=== PATIENT | female | born 1965 | race Caucasian/White ===

== ENCOUNTER 2024-06-19 15:49 | Emergency (ER) | payer OTHER ==
[2024-06-19 16:33] LABS: Absolute Eosinophils 0.1 K/uL (0-0.5); Absolute Lymphocytes (CBC) 2.1 K/uL (0.7-4.9); Absolute Monocytes 0.4 K/uL (0.1-1.3); Absolute Neutrophil 5.3 K/uL (1.8-8.0); Basophils % 0.6 % (0-1.3); Eosinophils % 0.8 % (0-4.4); Hematocrit 39.7 % (36.0-45.0); Hemoglobin 13.5 g/dL (12.0-15.0); Lymphocytes % 26.2 % (15.3-44.8); MCH 28.4 pg (27.0-35.0); MCV 83.6 fL (80-100); Monocytes % 5.6 % (3.3-12.3); Neutrophils % 66.8 % (41.7-73.7); Nucleated Red Blood Cells % 0.1 % (0-0); Platelets 292 thou/uL (152-406); RBC Red Blood Cell Count 4.76 M/uL (3.86-4.86); Red Cell Distribution Width 14.6 % (12.1-15.2)
--- NOTE | 2024-06-19 16:34 | RAD REPORT ---
EXAMINATION: ONE VIEW CHEST XR CLINICAL INDICATION: CHEST PAIN TECHNIQUE: Frontal chest projection is submitted. Examination is limited by patient positioning and t echnique. COMPARISON: No prior exam. FINDINGS: The lungs are well inflated and clear. The heart is upper limit of normal in size. No displaced fract ures identified. IMPRESSION: No acute intrathoracic abnormalities.
[2024-06-19 16:52] LABS: ALT/SGPT 31 U/L (13-56); AST/SGOT 19 U/L (15-37); Albumin/Globulin Ratio 1.1 (1.1-1.8); Alkaline Phosphatase 132 U/L (45-117); Anion Gap 9.7 mEq/L (5.0-15.0); BUN Blood Urea Nitrogen 15 mg/dL (7-18); Bicarbonate 25 mEq/L (21-32); Bilirubin Total 0.4 mg/dL (0.2-1.0); Globulin 3.8 g/dL (2.3-3.5); Glomerular Filtration Rate 102 ml/min (=/>90); Glucose Level 101 mg/dL (74-106); Potassium 3.7 mEq/L (3.5-5.1); Protein, Total 7.8 g/dL (6.4-8.2); Sodium Level 139 mEq/L (136-145)
[2024-06-19 16:53] LABS: Bilirubin Direct < 0.2 mg/dL (0-0.2); Bilirubin Indirect, Calculated 0.2 mg/dL (0.2-0.8); Troponin High Sensitivity < 3.0 pg/mL (<58.9)
[2024-06-19] MEDS ORDERED: ASPIRIN 81 MG CHEWABLE TABLET ONE (16:55)
--- NOTE | 2024-06-19 17:46 | ER ---
Nurse's Notes [facility] Name: Theresa Michelle Age: 58 yrs Sex: Female : 1965 Arrival Date: 06/19/2024 Time: 15:49 Bed 4 Private MD: Diagnosis: Chest pain, unspecified Presentation: 06/19 15:59 Chief complaint: Patient states: chest fluttering/pain across chest for a few days, iw pain radiates to left arm, also feels pressure in right side of chest. Coronavirus screen: At this time, the client does not indicate any symptoms associated with coronavirus-19. Ebola Screen: No symptoms or risks identified at this time. Initial Sepsis Screen: Does the patient meet any 2 criteria? No. Patient's initial sepsis screen is negative. Does the patient have a suspected source of infection? No. Patient's initial sepsis screen is negative. Risk Assessment: Do you want to hurt yourself or someone else? Patient reports no desire to harm self or others. Onset of symptoms was June 17, 2024. 15:59 Method Of Arrival: Ambulatory iw 15:59 Acuity: MARIO 3 iw Historical: - Allergies: 16:00 No Known Allergies; iw - Home Meds: 16:00 None [Active]; iw - PMHx: 16:00 Diabetes mellitus; Migraine; iw - PSHx: 16:00 section; tubal ligation; iw - Immunization history:: Adult Immunizations up to date. - Infectious Disease History:: Denies. - Social history:: Smoking status: Patient/guardian denies using tobacco, Stopped _ months ago 2. - Family history:: not pertinent. Screenin:24 [facility] [place] ED Fall Risk Assessment (Adult) History of falling in the last 3 months, le1 including since admission No falls in past 3 months (0 pts) Confusion or Disorientation No (0 pts) Intoxicated or Sedated No (0 pts) Impaired Gait No (0 pts) Mobility Assist Device Used No (0 pt) Altered Elimination No (0 pt) Score/Fall Risk Level 0 - 2 = Low Risk Oriented to surroundings, Maintained a safe environment, Educated pt \T\ family on fall prevention, incl call for assistance when getting out of bed, Assessed \T\ reinforced patient's understanding of fall precautions, Hourly rounding (assess needs \T\ fall precautionary measures) done. Abuse screen: Denies threats or abuse. Denies injuries from another. Nutritional screening: No deficits noted. Tuberculosis screening: No symptoms or risk factors identified. Vital Signs: 15:59 BP 185 / 97; Pulse 88; Resp 16; Pulse Ox 98% on R/A; Weight 79.38 kg; Height 5 ft. 3 iw in. ; Pain 3/10; 15:59 Body Mass Index 31.00 (79.38 kg, 160.02 cm) iw 15:59 Pain Scale: Adult ED Course: 15:50 Patient arrived in ED. am2 15:51 Segundo Aranda MD is Attending Physician. rt 15:54 Eduard Farris RN is Primary Nurse. le1 16:00 Triage completed. iw 16:01 Arm band placed on. iw 16:23 Initial lab(s) drawn, by me, sent to lab. EKG done, by ED staff, reviewed by Segundo Aranda MD. Inserted saline lock: 20 gauge in right forearm, using aseptic technique. Blood collected. Flushed with 10 mL NS. Patient maintains SpO2 saturation greater than 95% on room air. 16:24 Patient has correct armband on for positive identification. Bed in low position. Call le1 light in reach. Side rails up X2. Provided Education on: Informed to use call light for assistance. Client placed on continuous cardiac and pulse oximetry monitoring. NIBP monitoring applied. directory clerk on. Pulse ox on. NIBP on. 16:26 XRAY Chest (1 view) In Process Unspecified. EDMS 17:45 Baudilio Barron MD is Referral Physician. rt Administered Medications: 16:57 Drug: Aspirin PO Chewable Tablet 324 mg PO once; 81 mg tablets x 4 Route: PO; le1 16:57 Follow up: Response: No adverse reaction le1 Outcome: 17:45 Discharge ordered by . rt 18:34 Patient left the ED. Signatures: Dispatcher [employer] EDMS Nydia Horne RN RN Zoie Jaquez am2 Segundo Aranda MD MD rt Eduard Farris RN RN le1
--- NOTE | 2024-06-19 17:46 | EDPHYS ---
Physician Documentation [facility] Name: Theresa Michelle Age: 58 yrs Sex: Female : 1965 Arrival Date: 06/19/2024 Time: 15:49 Bed 4 Private MD: ED Physician Segundo Aranda HPI: 06/19 17:46 This 58 yrs old Female presents to ER via Ambulatory with complaints of Chest Pain, Arm rt Pain, Back Pain. 17:46 Patient presents to the ED with about 3 days of intermittent chest tightness. Denies rt shortness of breath, other acute complaints at this time. Symptoms are moderate in severity, no other aggravating or alleviating factors. Denies exertional component.. Historical: - Allergies: 16:00 No Known Allergies; iw - Home Meds: 16:00 None [Active]; iw - PMHx: 16:00 Diabetes mellitus; Migraine; iw - PSHx: 16:00 section; tubal ligation; iw - Immunization history:: Adult Immunizations up to date. - Infectious Disease History:: Denies. - Social history:: Smoking status: Patient/guardian denies using tobacco, Stopped _ months ago 2. - Family history:: not pertinent. ROS: 17:46 Constitutional: Negative for fever, chills, and weight loss, Respiratory: Negative for rt shortness of breath, cough, wheezing, and pleuritic chest pain, Abdomen/GI: Negative for abdominal pain, nausea, vomiting, diarrhea, and constipation, MS/Extremity: Negative for injury and deformity, Skin: Negative for injury, rash, and discoloration, Neuro: Negative for headache, weakness, numbness, tingling, and seizure, 17:46 Cardiovascular: Positive for chest pain, Negative for edema, Exam: 17:46 Constitutional: This is a well developed, well nourished patient who is awake, alert, rt and in no acute distress. Head/Face: Normocephalic, atraumatic. Chest/axilla: Normal chest wall appearance and motion. Nontender with no deformity. No lesions are appreciated. Cardiovascular: Regular rate and rhythm with a normal S1 and S2. No gallops, murmurs, or rubs. Normal PMI, no JVD. No pulse deficits. Respiratory: Lungs have equal breath sounds bilaterally, clear to auscultation and percussion. No rales, rhonchi or wheezes noted. No increased work of breathing, no retractions or nasal flaring. Abdomen/GI: Soft, non-tender, with normal bowel sounds. No distension or tympany. No guarding or rebound. No evidence of tenderness throughout. Skin: Warm, dry with normal turgor. Normal color with no rashes, no lesions, and no evidence of cellulitis. MS/ Extremity: Pulses equal, no cyanosis. Neurovascular intact. Full, normal range of motion. Neuro: Awake and alert, GCS 15, oriented to person, place, time, and situation. Cranial nerves II-XII grossly intact. Motor strength 5/5 in all extremities. Sensory grossly intact. Cerebellar exam normal. Normal gait. 17:46 ECG was reviewed by the Attending Physician. Vital Signs: 15:59 BP 185 / 97; Pulse 88; Resp 16; Pulse Ox 98% on R/A; Weight 79.38 kg; Height 5 ft. 3 iw in. ; Pain 3/10; 15:59 Body Mass Index 31.00 (79.38 kg, 160.02 cm) iw 15:59 Pain Scale: Adult iw MDM: 16:05 Medical Screening Exam initiated rt 17:46 Differential diagnosis: Nonspecific chest pain, chest wall pain, pneumonia, rt pneumothorax, CAD. HEART Score: History: Slightly Suspicious (0), ECG: Non specific repolarization disturbance / LBTB / PM (1), Age: > 45 and < 65 years (1), Risk Factors: 1 or 2 risk factors (1), Troponin: < or = 1 x Normal Limit (0), Total Score = 3. The patient was given aspirin in the Emergency Department. Data reviewed: vital signs, nurses notes, lab test result(s), EKG, radiologic studies. Consideration of Admission/Observation Escalation of care including admission/observation considered. Symptoms have been present for about 3 days, for this reason, believe that 1 set of undetectable cardiac enzymes is sufficient to rule out acute coronary syndrome. Do not believe that she requires admission at this time. Patient is stable for outpatient care, I discussed outpatient follow-up with cardiology as well as return precautions for worsening symptoms patient verbalizes understanding and is comfortable with this plan.. I considered the following discharge prescriptions or medication management in the emergency department Medications were administered in the Emergency Department. See MAR. Independent interpretation of the following test(s) in the Emergency Department X-Ray: My interpretation is No infiltrate seen on my interpretation of x-ray images. Care significantly affected by the following chronic conditions: Diabetes. Counseling: I had a detailed discussion with the patient and/or guardian regarding the historical points, exam findings, and any diagnostic results supporting the discharge/admit diagnosis, lab results, radiology results, the need for outpatient follow up, to return to the emergency department if symptoms worsen or persist or if there are any questions or concerns that arise at home. 06/19 16:09 Order name: Basic Metabolic Panel; Complete Time: 16:56 rt 06/19 16:09 Order name: CBC with Diff; Complete Time: 16:41 rt 06/19 16:09 Order name: LFT's; Complete Time: 16:56 rt 06/19 16:09 Order name: Troponin HS; Complete Time: 16:56 rt 06/19 16:09 Order name: XRAY Chest (1 view); Complete Time: 16:41 rt 06/19 16:09 Order name: Cardiac monitoring; Complete Time: 16:23 rt 06/19 16:09 Order name: EKG - Nurse/Tech; Complete Time: 16:27 rt 06/19 16:09 Order name: IV Saline Lock; Complete Time: 16:27 rt 06/19 16:09 Order name: Labs collected and sent; Complete Time: 16:23 rt 06/19 16:09 Order name: O2 Per Protocol; Complete Time: 16:23 rt 06/19 16:09 Order name: O2 Sat Monitoring; Complete Time: 16:23 rt EC:46 Rate is 63 beats/min. Rhythm is regular, Normal Sinus Rhythm with No ectopy. QRS [place] rt is Normal. MO interval is normal. QRS interval is normal. QT interval is normal. No Q waves. No ST changes noted. Interpreted by me. Administered Medications: 16:57 Drug: Aspirin PO Chewable Tablet 324 mg PO once; 81 mg tablets x 4 Route: PO; le1 16:57 Follow up: Response: No adverse reaction le1 Disposition Summary: 06/19/24 17:45 Discharge Ordered Notes: Location: Home rt Problem: new rt Symptoms: have improved rt Condition: Stable rt Diagnosis - Chest pain, unspecified rt Followup: rt - With: Baudilio Barron MD - When: 2 - 3 days - Reason: Discharge Instructions: - Discharge Summary Sheet rt - Nonspecific Chest Pain, Adult rt Forms: - Medication Reconciliation Form rt - Antibiotic Education rt - Prescription Opioid Use rt - Patient Portal Instructions rt - Leadership Thank You Letter rt Signatures: Dispatcher [employer] Nydia Sue, RN Segundo Wang MD MD rt Eduard Farris RN RN le1 Corrections: (The following items were deleted from the chart) 16:09 16:09 BASIC METABOLIC PANEL+C.LAB.BRZ ordered. EDMS EDMS 16: 16:09 CBC+H.LAB.BRZ ordered. EDMS EDMS 16: 16:09 HEPATIC FUNCTION+C.LAB.BRZ ordered. EDMS EDMS 16:09 16:09 Troponin High Sensitivity+C.LAB.BRZ ordered. EDMS EDMS 16:10 16:10 Chest Single View+RAD.RAD.BRZ ordered. EDMS EDMS
[2024-06-19 19:00] VITALS: BP 185/97; O2SAT 98
--- NOTE | 2024-06-20 12:05 | EKG ---
Test Date: 2024-06-19 Test Time: 16:04:16 Underwater Photographer: [id number] MEASUREMENT RESULTS: Intervals: Rate: 63 ND: 138 QRSD: 70 QT: 472 QTc: 483 [place]: P: 49 ND: 138 QRS: 3 T: 16 INTERPRETIVE STATEMENTS: Normal sinus rhythm Minimal voltage criteria for LVH, may be normal variant Cannot rule out Anterior infarct, age undetermined Abnormal ECG No previous ECG available for comparison Electronically Signed On 06-20-24 12:02:57 [employer] OFFICER by Brien Valenzuela
== END 2024-06-19 18:34 | disposition home or self-care (01) ==
LOC: ER 15:49
DX: R07.89 Other chest pain (principal)
CPT/HCPCS: 36415; 71045; 80048; 80076; 84484; 85025; 93005; 99284